=== PATIENT | female | born 1990 | race Caucasian/White ===

== ENCOUNTER → 2016-08-29 | Outpatient (CLI) | payer OTHER ==
--- NOTE | 2016-08-29 14:14 | REP ---
Clinical: Pain. Technique: AP, lateral, bilateral oblique views left foot. Findings: The osseous structures and joint spaces are intact and normal. There is no evidence for acute fracture or dislocation. Surrounding soft tissues are unremarkable. No subcutaneous emphysema or radiodense foreign body. Impression: Normal examination. No acute fracture or dislocation. Signed by Missael Heller MD 08/29/2016 02:05 P
== END ==
LOC: M LRY 13:38
PROVIDERS: ATTEND Physician Assistant
DX: M79.672 Pain in left foot (principal)
CPT/HCPCS: 73630; G0463

== ENCOUNTER → 2016-12-18 | Outpatient (REF) | payer OTHER ==
[~2016-12-18] MED LIST: IBUP-1022; MAGICMW SSP
== END ==
LOC: M SFHCLERA 12:55
PROVIDERS: ATTEND Nurse Practitioner Family
DX: J35.8 Other chronic diseases of tonsils and adenoids (principal)

== ENCOUNTER 2017-01-08 22:47 | Emergency (ER) | payer OTHER ==
[~2017-01-08] VITALS: Ht 152.4 cm; Wt 75.0 kg
[2017-01-08 22:59] VITALS: BP 131/81
[2017-01-08] MEDS ORDERED: IBUP-1022 (23:04)
[2017-01-08] MEDS ORDERED: ACETAMINOPHEN 325 MG TAB PO ONE (23:30)
[2017-01-09 00:26] LABS: BASO % 0.3 % (0.0-1.0); IMMATURE GRANULOCYTE % 0.3 % (0-0); LYMPH # 1.4 10^3/uL (1.5-6.5); LYMPH % 19.1 % (24.0-44.0); MEAN CORPUSCULAR HEMOGLOBIN 30.2 pg (27.0-33.0); MEAN CORPUSCULAR HGB CONC 33.7 g/dl (32.0-36.5); MEAN CORPUSCULAR VOLUME 89.4 fl (80.0-96.0); MONO # 0.7 10^3/uL (0.0-0.8); MONO % 9.9 % (0.0-5.0); NEUTROPHILS % 70.4 % (36.0-66.0); PLATELET COUNT, AUTOMATED 289 10^3/uL (150-450); RED CELL DISTRIBUTION WIDTH 12.1 % (11.5-14.5); WHITE BLOOD COUNT 7.1 10^3/uL (4.0-10.0)
[2017-01-09 00:38] LABS: CONTROL LINE MONO INT CTR LINE PRESENT
[2017-01-09 00:43] LABS: ALBUMIN 3.9 GM/DL (3.2-5.2); ALBUMIN/GLOBULIN RATIO 0.98 (1.00-1.93); ALKALINE PHOSPHATASE 108 U/L (45-117); ALT/SGPT 19 U/L (12-78); ANION GAP 5 MEQ/L (8-16); AST/SGOT 12 U/L (7-37); BILIRUBIN,TOTAL 0.4 MG/DL (0.2-1.0); BLOOD UREA NITROGEN 13 MG/DL (7-18); CALCIUM LEVEL 8.6 MG/DL (8.5-10.1); CARBON DIOXIDE LEVEL 26 MEQ/L (21-32); CHLORIDE LEVEL 106 MEQ/L (98-107); CREATININE FOR GFR 0.74 MG/DL (0.55-1.02); GLOMERULAR FILTRATION RATE > 60.0 (>60); GLUCOSE, FASTING 97 MG/DL (70-105); POTASSIUM SERUM 3.4 MEQ/L (3.5-5.1); SODIUM LEVEL 137 MEQ/L (136-145); TOTAL PROTEIN 7.9 GM/DL (6.4-8.2)
--- NOTE | 2017-01-09 00:48 | REP ---
Clinical: Fever . Comparison: 01/06/2017 . Technique: PA and lateral. Findings: The mediastinum and cardiac silhouette are normal. The lung esqueda are clear and without acute consolidation, effusion, or pneumothorax. The skeletal structures are intact and normal. Impression: 1. No acute cardiopulmonary process. Signed by Missael Heller MD 01/09/2017 12:38 A
[2017-01-09] MEDS ORDERED: MAGICMW SSP (00:53)
== END 2017-01-09 01:04 | disposition home or self-care (01) ==
LOC: M ED 22:47
DX: B34.9 Viral infection, unspecified (principal); R59.1 Generalized enlarged lymph nodes

== ENCOUNTER → 2017-01-13 | Outpatient (REF) | payer OTHER | LOC: M LAB REF 17:59 | PROVIDERS: ATTEND Otolaryngology | DX: R59.0 Localized enlarged lymph nodes (principal) ==

== ENCOUNTER → 2017-01-13 | Outpatient (REF) | payer OTHER ==
[2017-01-13 18:21] LABS: ERYTHROCYTE SEDIMENTATION RATE 16 mm/hr (0-20); REASON FOR REVIEW COMPREHENSIVE REVIEW
== END ==
LOC: M LAB REF 15:57
PROVIDERS: ATTEND Internal Medicine Medical Oncology
DX: D72.819 Decreased white blood cell count, unspecified (principal)

== ENCOUNTER → 2017-02-03 | Outpatient (CLI) | payer OTHER ==
[~2017-02-03] MED LIST changes: +LIDOCAINE 1% MDV 20ML VIAL As Ordered ONE
--- NOTE | 2017-02-03 17:56 | REP ---
Ultrasound-guided left neck lymph node biopsy The procedure was performed under the direct supervision of Dr. 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 The largest measuring 1.3 cm. These were seen on a previous CT scan from [facility] performed on 12/31/2016. The risks and benefits of the procedure were explained to the patient and informed consent was obtained. The left cervical lymph node localized using ultrasound guidance. The skin was prepped and draped in a sterile fashion. 1% Xylocaine was used as a local anesthetic. Using ultrasound guidance a 19/20 gauge coaxial needle biopsy system was inserted and advanced into the lymph node. Six core biopsy samples were obtained and sent to lab. The patient tolerated the procedure well and there were no immediate complications. Reviewed by CANELO Sheldon 02/03/2017 03:48 PSigned by Pb Hendrickson MD 02/03/2017 05:47 P
--- NOTE | 2017-02-04 08:46 | REP ---
HEAD AND NECK ULTRASOUND: CLINICAL: Left sided palpable mass. TECHNIQUE: Real-time hein scale and color evaluation using linear high frequency transducer. FINDINGS: Directed ultrasound examination of the left neck at the site of palpable mass identifies a 2.1 x 0.9 x 1.5 cm hypoechoic nodular lesion likely representing lymph node. No further obvious abnormalities are appreciated. IMPRESSION: 2.1 cm hypoechoic lesion likely representing enlarged lymph node. Unreviewed
== END ==
LOC: M RADPRO 08:22
PROVIDERS: ATTEND Otolaryngology
DX: R59.0 Localized enlarged lymph nodes (principal)

== ENCOUNTER → 2017-02-16 | Outpatient (REF) | payer OTHER ==
[~2017-02-16] MED LIST changes: -LIDOCAINE 1% MDV 20ML VIAL As Ordered ONE
== END ==
LOC: M LAB REF 18:22
PROVIDERS: ATTEND Internal Medicine Medical Oncology
DX: R59.9 Enlarged lymph nodes, unspecified (principal)

== ENCOUNTER → 2017-07-31 | Outpatient (REF) | payer OTHER | LOC: M LAB REF 19:00 | DX: N39.0 Urinary tract infection, site not specified (principal) | CPT/HCPCS: 87186 ==